=== PATIENT | female | born 1980 ===

== ENCOUNTER 2017-11-20 10:18 | Emergency (ER) | payer OTHER ==
[2017-11-20 10:46] VITALS: BP 119/77
--- NOTE | 2017-11-20 11:22 | UC ---
Abdominal Pain Female HPI - HPI Summary HPI Summary: Patient complains of a few days of vaginal discharge seemed to begin after intercourse. Patient tried Clindagel and MetroGel with no relief. Patient reports increased itching and discomfort after the use of the vaginal gels - History of Current Complaint Chief Complaint: UCGU Stated Complaint: FEMALE COMP Time Seen by Provider: 11/20/17 11:04 Hx Obtained From: Patient Hx Last Menstrual Period: 10/23/17 ?: No Onset/Duration: Sudden Onset, Lasting Days, Still Present Timing: Constant Severity Initially: Moderate Severity Currently: Moderate Pain Intensity: 6 Pain Scale Used: 0-10 Numeric Location: Other - vulva/vaginal Radiates: No Character: Burning Aggravating Factor(s): Nothing Alleviating Factor(s): Nothing Associated Signs and Symptoms: Positive: Vaginal Discharge - thick white PMH/Surg Hx/FS Hx/Imm Hx Previously Healthy: Yes - Surgical History Surgical History: Yes Surgery Procedure, Year, and Place: c section - Family History Known Family History: Positive: None - Social History Occupation: Unemployed Lives: With Family Alcohol Use: Weekly Alcohol Amount: 2 - 4 times a month Substance Use Type: None Smoking Status (MU): Heavy Every Day Tobacco Smoker Amount Used/How Often: 1/2 - 1 ppd Have You Smoked in the Last Year: Yes Review of Systems Constitutional: Negative Skin: Negative Eyes: Negative ENT: Negative Respiratory: Negative Cardiovascular: Negative Gastrointestinal: Negative Genitourinary: Vaginal/Penile Itching, Vaginal/Penile Discharge, Other - Motor: Negative Neurovascular: Negative Musculoskeletal: Negative Neurological: Negative Psychological: Negative Is Patient Immunocompromised?: No All Other Systems Reviewed And Are Negative: Yes Physical Exam Triage Information Reviewed: Yes Appearance: Well-Appearing, No Pain Distress, Well-Nourished Vital Signs: Initial Vital Signs Temp 98.2 F 11/20/17 10:34 Pulse 85 11/20/17 10:34 Resp 14 11/20/17 10:34 BP 119/77 11/20/17 10:34 Pulse Ox 100 11/20/17 10:34 Vital Signs Reviewed: Yes Eye Exam: Normal Eyes: Positive: Conjunctiva Clear ENT Exam: Normal ENT: Positive: Normal ENT inspection, Hearing grossly normal. Negative: Muffled voice, Hoarse voice, Dental tenderness Dental Exam: Normal Neck exam: Normal Neck: Positive: Supple, Nontender, No Lymphadenopathy Respiratory Exam: Normal Respiratory: Positive: Chest non-tender, Lungs clear, Normal breath sounds, No respiratory distress, No accessory muscle use Cardiovascular Exam: Normal Cardiovascular: Positive: RRR, No Murmur, Pulses Normal, Brisk Capillary Refill Abdominal Exam: Normal Abdomen Description: Positive: Nontender, No Organomegaly, Soft. Negative: CVA Tenderness (R), CVA Tenderness (L) Bowel Sounds: Positive: Present Pelvic Exam: Positive: External Exam Normal, Speculum Exam Normal, No Cerv. Motion Tender Musculoskeletal Exam: Normal Musculoskeletal: Positive: Strength Intact, ROM Intact Neurological Exam: Normal Neurological: Positive: Alert, Muscle Tone Normal Psychological Exam: Normal Skin Exam: Normal Diagnostics - Laboratory Diagnostic Studies Completed/Ordered: ua +1 leukoesterase, u-preg Neg Abd Pain Female Course/Dx - Course Course Of Treatment: Spelled MetroGel and Clindagel. May use Diflucan 1 now and can be repeated in 4 days if symptoms have not resolved. Follow at that [facility] - Differential Dx/Diagnosis Provider Diagnoses: Nicotine dependence, vaginal candidiasis Discharge - Sign-Out/Discharge Documenting (check all that apply): Discharge - Discharge Plan Condition: Stable Disposition: HOME Prescriptions: Fluconazole [Diflucan 150 MG (NF)] 150 mg PO ONCE #2 tab Patient Education Materials: Yeast Infection (ED) Referrals: [facility] [Outside] - If Needed - Billing Disposition and Condition Condition: STABLE Disposition: HOME
== END 2017-11-20 11:32 | disposition home or self-care (01) ==
LOC: UCCORT 10:18
DX: B37.3 Candidiasis of vulva and vagina (principal); Z32.02 Encounter for pregnancy test, result negative; F17.200 Nicotine dependence, unspecified, uncomplicated
CPT/HCPCS: 81003; 84702; 87086; 87480; 87491; 87510; 87591; 87661; 99212; G0463

== ENCOUNTER 2018-02-16 14:41 | Emergency (ER) | payer OTHER ==
[2018-02-16 15:09] VITALS: BP 113/72
--- NOTE | 2018-02-16 15:12 | UC ---
UC General HPI - HPI Summary HPI Summary: Patient presents complaining of "upset stomach" she describes this as feeling like her abdomen is hard, bloated and notes she sometimes feels pain in her right lower abdomen. With this,she notes a dan vaginal discharge. She is sexually active but has had the same partner for some time. She was seen here in November for a vaginal discharge and notes that her cultures at that time were all negative. Her current symptoms been present for about a week. Her last period was January 19 of this year. - History of Current Complaint Stated Complaint: BLOATING,UPSET STOMACH Time Seen by Provider: 02/16/18 15:02 Hx Obtained From: Patient Hx Last Menstrual Period: 10/23/17 Onset/Duration: Gradual Onset Timing: Constant Aggravating: nothing Alleviating: nothing Associated Signs & Symptoms: Positive: Abdominal Pain. Negative: Dysuria, Fever , Headache - Allergy/Home Medications Allergies/Adverse Reactions: Allergies Allergy/AdvReac Type Severity Reaction Status Date / Time No Known Allergies Allergy Verified 02/16/18 14:57 Home Medications: Home Medications Albuterol HFA INHALER* [Ventolin HFA Inhaler*] 2 puff INH Q4H PRN 02/16/18 [ History Confirmed 02/16/18] Loratadine [Claritin 10 MG CAP] 10 mg PO DAILY 02/16/18 [History Confirmed 02/16] Montelukast Sodium TAB* [Singulair TAB*] 10 mg PO DAILY 02/16/18 [History Confirmed 02/16/18] PMH/Surg Hx/FS Hx/Imm Hx - Additional Past Medical History Additional PMH: vaginitis(yeast, BV) Respiratory History: Asthma - Surgical History Surgical History: Yes Surgery Procedure, Year, and Place: c section - Family History Known Family History: Positive: Diabetes - Social History Occupation: Employed Part-time Alcohol Use: Weekly Alcohol Amount: 2 - 4 times a month Substance Use Type: None Smoking Status (MU): Heavy Every Day Tobacco Smoker Amount Used/How Often: 1/2 - 1 ppd Have You Smoked in the Last Year: Yes - Immunization History Vaccination Up to Date: Yes Review of Systems Constitutional: Negative Skin: Negative Eyes: Negative ENT: Negative Respiratory: Negative Cardiovascular: Negative Gastrointestinal: Abdominal Pain Genitourinary: Abnormal Bleeding - ?, dan discharge. Motor: Negative Neurovascular: Negative Musculoskeletal: Negative Neurological: Negative Psychological: Negative Is Patient Immunocompromised?: No All Other Systems Reviewed And Are Negative: Yes Physical Exam Triage Information Reviewed: Yes Appearance: Well-Appearing Vital Signs Reviewed: Yes Eyes: Positive: Conjunctiva Clear ENT: Positive: Normal ENT inspection Neck: Positive: Supple, Nontender, No Lymphadenopathy Respiratory: Positive: Lungs clear, Normal breath sounds Cardiovascular: Positive: RRR, No Murmur Abdomen Description: Positive: Nontender, No Organomegaly, Soft. Negative: Distended, Guarding Bowel Sounds: Positive: Present Musculoskeletal: Positive: ROM Intact Neurological: Positive: Alert Psychological: Positive: Age Appropriate Behavior Skin Exam: Normal Diagnostics - Laboratory Diagnostic Studies Completed/Ordered: U/A=UNREMARKABLE. HCG=POSITIVE. Course/Dx - Course Course Of Treatment: Pt advised of need to r/o ectopic given her c/o abdominal pain and + hcg. she agrees to go directly to the [facility] ER from here. Report called to [facility] ER. Spoke to Evelin Barrios NP. Advised of pt having bloating and abdominal pain with + hcg and need to r/o ectopic . urine gc/chlamydia are pending; however, pt denies new partner and std testing in 11/26 was neg. she request HIV test but then changed her mind. any additional exam/testing defer to ER. - Differential Dx - Multi-Symptom Provider Diagnoses: abdominal pain. + test. r/o ectopic . Discharge - Sign-Out/Discharge Documenting (check all that apply): Discharge/Admit/Transfer - Discharge Plan Condition: Stable Disposition: TRANS HIGHER LVL OF CARE FAC Referrals: Tori Hernández PA [Primary Care Provider] - Additional Instructions: LEAVE HERE AND GO DIRECTLY TO THE [facility] ER DISCUSSED - Billing Disposition and Condition Condition: STABLE Disposition: Trans Higher Lvl of Care Fac
== END 2018-02-16 15:53 | disposition short-term general hospital (02) ==
LOC: UCCORT 14:41
DX: O26.899 Other specified pregnancy related conditions, unspecified trimester (principal); R10.9 Unspecified abdominal pain; J45.909 Unspecified asthma, uncomplicated; Z3A.00 Weeks of gestation of pregnancy not specified; O99.330 Smoking (tobacco) complicating pregnancy, unspecified trimester
CPT/HCPCS: 81003; 84702; 87491; 87591; 99212; G0463